=== PATIENT | male | born 1980 | race Caucasian/White ===

== ENCOUNTER 2017-10-31 00:04 | Emergency (ER) | payer SELFPAY ==
[~2017-10-31] VITALS: Ht 188 cm; Wt 80.0 kg
--- NOTE | 2017-10-31 00:44 | PD ---
HPI Chief Complaint: Injury Time Seen by Provider: 00:29 Travel History International Travel<30 days: No Contact w/Intl Traveler<30days: No Traveled to known affect area: No History of Present Illness HPI 37-year-old male here for evaluation of right forearm and arm pain after falling from a height of about 6 feet out of a tree house yesterday. The patient reports that he struck his posterior right forearm against the deck of the treehouse, and since that time he has had pain in his right upper extremity. Pain is moderate, constant, worse with movement and palpation, slightly improved with rest. He denies head injury or LOC. No neck or back pain. No pain in any other joint or extremity. He is right-hand dominant. FOR[facility]LY [facility], [facility] Social History Tobacco Use: No Allergies-Medications (Allergen,Severity, Reaction): Coded Allergies: hydromorphone (Verified Allergy, Severe, 10/31/17) Reported Meds & Prescriptions Reported Meds & Active Scripts Active Tramadol (Tramadol HCl) 50 Mg Tab 50 Mg PO Q6H PRN Review of Systems Except as stated in HPI: all other systems reviewed are Neg Physical Exam Narrative GENERAL: Well-developed, well-nourished, awake, alert, GCS 15, no apparent distress. SKIN: Focused skin assessment warm/dry. No lacerations, abrasions, or ecchymosis. HEAD: Atraumatic. Normocephalic. EYES: Pupils equal and round. No scleral icterus. No injection or drainage. ENT: No nasal bleeding or discharge. Mucous membranes pink and moist. NECK: Trachea midline. No JVD. CARDIOVASCULAR: Regular rate and rhythm. Bilateral distal radial pulses are brisk and equal. Normal capillary refill in right hand. RESPIRATORY: No accessory muscle use. Clear to auscultation. Breath sounds equal bilaterally. GASTROINTESTINAL: Abdomen soft, non-tender, nondistended. MUSCULOSKELETAL: Right forearm with edema and possible bony deformity with diffuse tenderness, all compartments are supple. There is mild tenderness along the right humerus and elbow without obvious deformity as well as the right hand without obvious deformity. All compartments in the right upper extremity are supple. Right upper extremity is neurovascularly intact. NEUROLOGICAL: Awake and alert. No obvious cranial nerve deficits. Motor grossly within normal limits. Normal speech. PSYCHIATRIC: Appropriate mood and affect; insight and judgment normal. Data Data Last Documented VS Vital Signs Date Time Temp Pulse Resp B/P (MAP) Pulse Ox O2 Delivery O2 Flow Rate FiO2 10/31/17 01:57 10/31/17 00:55 72 16 98 Room Air Orders Orders Forearm (2vws) (10/31/17 ) Humerus (Min 2vws) (10/31/17 ) Hand, Complete (Bsl2yvl) (10/31/17 ) Ed Discharge Order (10/31/17 01:38) Tramadol (Ultram) (10/31/17 01:45) MDM Medical Decision Making Medical Screen Exam Complete: Yes Emergency Medical Condition: Yes Differential Diagnosis Right forearm fracture, right forearm contusion, compartment syndrome less likely Narrative Course Right forearm, humerus, and hand x-rays are negative for fractures. There are no signs of compartment syndrome on exam. The patient is happy that he does not have a broken bone. I advised that he keep the arm elevated and continue to apply ice. I offered pain medication, however the patient has declined. Diagnosis Primary Impression: Contusion of right forearm Qualified Codes: S50.11XA - Contusion of right forearm, initial encounter Referrals: Primary Care Physician 3 days Additional Instructions: Follow-up with a primary care physician this week. Return to the emergency department for worsening symptoms or any other concerns. Scripts Tramadol (Tramadol) 50 Mg Tab 50 MG PO Q6H Y for PAIN, #15 TAB 0 Refills Prov: Jesu Clancy MD 10/31/17 Disposition: 01 DISCHARGE HOME Condition: Stable Jesu Clancy MD Oct 31, 2017 00:44
[2017-10-31 00:55] VITALS: BP 136/76; PULSE 72; RESP 16; O2SAT 98
--- NOTE | 2017-10-31 01:21 | RADRPT ---
EXAM DATE/TIME: 10/31/2017 01:06 [facility] COMPARISON: No previous studies available for comparison. INDICATIONS : Right arm pain from a six foot fall. MEDICAL HISTORY : None. SURGICAL HISTORY : None. ENCOUNTER: Initial ACUITY: 1 day PAIN SCORE: 0/10 LOCATION: Right hand FINDINGS: Three view examination of the right hand demonstrates no soft tissue swelling, dislocation, or fractu re. The carpal bones appear intact. The interphalangeal and metacarpophalangeal joints are intact. Bony mineralization is normal. CONCLUSION: No evidence of recent bony injury. Mauri Judge MD on October 31, 2017 at 1:20 Board Certified Radiologist. This report was verified electronically.
--- NOTE | 2017-10-31 01:21 | RADRPT ---
EXAM DATE/TIME: 10/31/2017 01:01 [facility] COMPARISON: No previous studies available for comparison. INDICATIONS : Right arm pain from a six foot fall. MEDICAL HISTORY : None. SURGICAL HISTORY : None. ENCOUNTER: Initial ACUITY: 1 day PAIN SCORE: 0/10 LOCATION: Right humerus FINDINGS: Two view examination of the right humerus demonstrates no evidence of fracture or dislocation. Bony mineralization is normal. The soft tissue structures are intact. CONCLUSION: No evidence of recent bone injury. A Mauri Judge MD on October 31, 2017 at 1:20 Board Certified Radiologist. This report was verified electronically.
--- NOTE | 2017-10-31 01:21 | RADRPT ---
EXAM DATE/TIME: 10/31/2017 01:04 [facility] COMPARISON: No previous studies available for comparison. INDICATIONS : Right mid shaft forearm pain from a fall of six feet. MEDICAL HISTORY : None. SURGICAL HISTORY : None. ENCOUNTER: Initial ACUITY: 1 day PAIN SCORE: 10/10 LOCATION: Right forearm FINDINGS: Two view examination of the right forearm demonstrates no evidence of fracture or dislocation. Bony mineralization is normal. The soft tissue structures are intact. CONCLUSION: No evidence of recent bony injury. Mauri Judge MD on October 31, 2017 at 1:19 Board Certified Radiologist. This report was verified electronically.
[2017-10-31] MEDS ORDERED: TRAM50TA PO (01:42)
[2017-10-31] MEDS ORDERED: traMADol HCL 50 MG TAB PO ONE (01:45)
== END 2017-10-31 01:57 | disposition home or self-care (01) ==
LOC: NEPC 00:04
DX: S50.11XA Contusion of right forearm, initial encounter (principal); W14.XXXA Fall from tree, initial encounter
CPT/HCPCS: 73060; 73090; 73130; 99283

== ENCOUNTER 2018-02-09 10:53 | Emergency (ER) | payer SELFPAY ==
[~2018-02-09 10:53] MED LIST: TRAM50TA PO
[2018-02-09 11:05] VITALS: BP 150/78; PULSE 95; RESP 16; TEMP 98.6; O2SAT 98
[2018-02-09] MEDS ORDERED: traMADol HCL 50 MG TAB PO ONE (11:15)
--- NOTE | 2018-02-09 11:16 | PD ---
HPI Chief Complaint: Injury Time Seen by Provider: 11:08 Travel History International Travel<30 days: No Contact w/Intl Traveler<30days: No Traveled to known affect area: No History of Present Illness HPI Patient is a 37-year-old male presenting to emerge department for evaluation of left knee pain. Patient states he fell off of a landing Wednesday night, landing on his left knee. He reports 10 out of 10 pain, decreased range of motion with flexion extension, and swelling. Patient denies any IV drug use. He denies any other injury or trauma. He states he did not realize there was no handrail on one side and went to lean on it, subsequently falling over and landing and twisting on his knee per his report. Symptom onset was sudden, symptoms are constant and moderate in nature. There are no alleviating factors. Patient has been taking ibuprofen 800 mg with no significant improvement. PFSH Past Medical History Medical History: Denies Significant Hx Diminished Hearing: No Tetanus Vaccination: < 5 Years Past Surgical History Surgical History: No Previous Surgery Social History Alcohol Use: No Tobacco Use: No Substance Use: No Allergies-Medications (Allergen,Severity, Reaction): Coded Allergies: hydromorphone (Verified Allergy, Severe, 02/09/18) Reported Meds & Prescriptions Reported Meds & Active Scripts Active No Active Prescriptions or Reported Medications Review of Systems Except as stated in HPI: all other systems reviewed are Neg Musculoskeletal: Positive: Myalgias, Arthralgias, Limited ROM, Edema, Pain Physical Exam Narrative GENERAL: Well-developed, well-nourished, alert male. Presenting in no acute distress. SKIN: Warm and dry. HEAD: Normocephalic. EYES: No scleral icterus. No injection or drainage. NECK: Supple, trachea midline. No JVD or lymphadenopathy. CARDIOVASCULAR: Regular rate and rhythm without murmurs, gallops, or rubs. RESPIRATORY: Breath sounds equal bilaterally. No accessory muscle use. GASTROINTESTINAL: Abdomen soft, non-tender, nondistended. MUSCULOSKELETAL: No cyanosis. Edema to left anterior knee, moderate tenderness to palpation. No obvious deformity. BACK: Nontender without obvious deformity. No CVA tenderness. Data Data Last Documented VS Vital Signs Date Time Temp Pulse Resp B/P (MAP) Pulse Ox O2 Delivery O2 Flow Rate FiO2 02/09/18 11:05 98.6 95 16 150/78 (102) 98 Orders Orders Knee, Complete (4vws) (02/09/18 ) Ice/Cold Pack (02/09/18 11:12) Tramadol (Ultram) (02/09/18 11:15) MDM Medical Decision Making Medical Screen Exam Complete: Yes Emergency Medical Condition: Yes Interpretation(s) Last Impressions Knee X-Ray 02/09/18 0000 Signed Impressions: CONCLUSION: Negative for an acute fracture. Minimal joint effusion. Internal arrangement is suspected. MRI may be of benefi t. Vital Signs Date Time Temp Pulse Resp B/P (MAP) Pulse Ox O2 Delivery O2 Flow Rate FiO2 02/09/18 11:05 98.6 95 16 150/78 (102) 98 Differential Diagnosis Fracture versus sprain versus strain versus effusion versus other Narrative Course Patient is a well-appearing 37-year-old male presenting to the emergency department department for evaluation of left knee pain. Patient's vital signs are stable, x-ray ordered and pending. Ice and tramadol ordered for pain. X-ray of the left knee is negative for acute bony abnormality. Internal derangement is suspected, outpatient MRI is recommended. Patient does not have a primary doctor. He was advised to follow-up at the [facility]. He will be given written information regarding their location, he was advised that they take 12 walk-in appointments daily. Patient has crutches, he was encouraged to rest, ice, elevate extremity. He was encouraged to take medications as needed and as directed for pain. He was advised to return to emergency department for any new or worsening symptoms. Patient verbalized understanding of these instructions. Patient stable for discharge. Diagnosis Primary Impression: Knee effusion, left Referrals: [facility] 1 week Orthopaedic Surgeon Patient Instructions: General Instructions, Swollen Knee Joint (ED) Additional Instructions: Rest, ice, elevate extremity Use crutches as needed, increase weightbearing as tolerated Take medications as needed as directed for pain Return to emergency department for any new or worsening symptoms Med/Other Pt SpecificInfo: Prescription(s) given Scripts Acetaminophen-Codeine (Tylenol-Codeine #3) 300-30 mg Tab 1 TAB PO Q6H Y for PAIN, #10 TAB 0 Refills Prov: Lupis Tinsley 02/09/18 Ibuprofen (Ibuprofen) 800 Mg Tab 800 MG PO Q6HR Y for PAIN, #40 TAB 0 Refills Prov: Lupis Tinsley 02/09/18 Disposition: 01 DISCHARGE HOME Condition: Stable Lupis Tinsley Feb 09, 2018 11:16
--- NOTE | 2018-02-09 11:50 | RADRPT ---
EXAM DATE: 02/09/2018 11:45 AM EDT AGE/SEX: 37 years / Male INDICATIONS: Left medial knee pain after jumping off high stairs. CLINICAL DATA: This is the patient's initial encounter. Patient reports that signs and symptoms have been present for 3 days and indicates a pain score of 6/10. MEDICAL/SURGICAL HISTORY: . Tore ACL. None. COMPARISON: No prior exams available for comparison. FINDINGS: Bony structures are intact and in normal alignment. Joints are intact without dislocation or signifi cant arthropathy. Osseous density is normal. Minimal joint effusion is evident.. No radiopaque fore ign bodies seen. CONCLUSION: Negative for an acute fracture. Minimal joint effusion. Internal arrangement is suspected. MRI may be of benefit. Electronically signed by: Darren Hoffmann MD 02/09/2018 11:48 AM EDT
[2018-02-09] MEDS ORDERED: TYLETAB34 PO (12:11)
[2018-02-09] MEDS ORDERED: IBUP1TAB7 PO (12:11)
== END 2018-02-09 12:48 | disposition home or self-care (01) ==
LOC: NEPD 10:53
DX: M25.462 Effusion, left knee (principal); W17.89XA Other fall from one level to another, initial encounter; Z88.5 Allergy status to narcotic agent
CPT/HCPCS: 73564; 99283; E0113